=== PATIENT | female | born 1945 | race Caucasian/White ===

== ENCOUNTER 2016-11-10 08:35 | Emergency (ER) | payer MEDICARE, BC ==
[2016-11-10 08:50] VITALS: BP 152/72
--- NOTE | 2016-11-10 12:21 | UC ---
Eldon Rivero Salem, scribed for Eliezer Farmer MD on 11/10/16 at 1009 . Throat Pain/Nasal Atilio HPI - HPI Summary HPI Summary: Patient is a 71 y/o F who presents to the ED with a sore throat for the past week. She reports a cough that is worse at night and intermittently productive for clear or yellow sputum. She denies pressure in ears, face, or sinuses. She also denies SOB, fever, or chills, but reports general myalgia. Pt does not take blood thinners. She states that her has not been feeling well either and that he recently started taking a Z-pack. Patients medication reviewed this visit. - History of Current Complaint Chief Complaint: UCGeneralIllness Stated Complaint: HEAD COLD COMPLAINT Time Seen by Provider: 11/10/16 09:57 Hx Obtained From: Patient Onset/Duration: Gradual Onset, Lasting Days, Still Present Severity: Moderate Cough: Sputum Appears - Clear and yellow. Associated Signs & Symptoms: Positive: Negative - Allergies/Home Medications Allergies/Adverse Reactions: Allergies Allergy/AdvReac Type Severity Reaction Status Date / Time No Known Allergies Allergy Verified 11/10/16 08:50 Home Medications: Home Medications Levothyroxine TAB* [Synthroid 25 MCG TAB*] 50 mcg PO DAILY 11/10/16 [History Confirmed 11/10/16] PMH/Surg Hx/FS Hx/Imm Hx Previously Healthy: Yes - Surgical History Surgical History: Yes Surgery Procedure, Year, and Place: HYSTERECTOMY. tonsillectomy - Family History Known Family History: Positive: Hypertension, Diabetes - Social History Alcohol Use: Rare Substance Use Type: None Smoking Status (MU): Never Smoked Tobacco Have You Smoked in the Last Year: No Review of Systems Constitutional: Negative ENT: Sore Throat, Other - No pressure in ears, face, or sinuses. Respiratory: Cough, Other - No SOB. Musculoskeletal: Other: - General myalgia. All Other Systems Reviewed And Are Negative: Yes Physical Exam Triage Information Reviewed: Yes Vital Signs: Initial Vital Signs Temp 97.6 F 11/10/16 08:46 Pulse 60 11/10/16 08:46 Resp 16 11/10/16 08:46 BP 152/72 11/10/16 08:46 Pulse Ox 99 11/10/16 08:46 Vital Signs Reviewed: Yes - Additional Comments The patient is well-nourished in no acute distress and in no acute pain. The skin is warm and dry and skin color reflects adequate perfusion. HEENT: The head is normocephalic and atraumatic. The pupils are equal and reactive. The conjunctivae are clear and without drainage. Nares are patent and without drainage. Mouth reveals moist mucous membranes. The throat: erythema, but no exudate. Uvula swollen. The external ears are intact. The ear canals are patent and without drainage. The tympanic membranes are intact. No effusion in right or left TM. No sinus tenderness to percussion. Neck is supple with full range of motion and non-tender. Respiratory: Chest is non-tender. Lungs are clear to auscultation and breath sounds are symmetrical and equal. Cardiovascular: Heart is regular rate and rhythm. There is no murmur or rub auscultated. There is no peripheral edema and pulses are symmetrical and equal. Abdomen: The abdomen is soft and non-tender. Musculoskeletal: There is no back pain noted. Extremities are non-tender with full range of motion. There is good capillary refill. There is no peripheral edema or calf tenderness elicited. Neurological: Patient is alert and oriented to person, place and time. The patient has symmetrical motor strength in all four extremities. Psychiatric: The patient has an appropriate affect and does not exhibit any anxiety or depression. Throat Pain/Nasal Course/Dx - Course Course Of Treatment: 71 y/o F presents with a sore throat for the past week. She reports general myalgia and a cough that is intermittently productive for clear or yellow sputum. She denies pressure in ears, face, or sinuses, SOB, fever, or chills. Pt will be DC with Robitussin and Augmentin, instruction, and follow up with PCP. - Differential Dx/Diagnosis Provider Diagnoses: Sinusitis. Bronchitis Discharge - Discharge Plan Condition: Stable Disposition: HOME Prescriptions: Amoxicillin/Clavulanate TAB* [Augmentin TAB 875*] 875 mg PO BID #20 tab guaiFENesin/CODIEN 100MG-10MG* [Robitussin AC 100Mg-10Mg*] 5 ml PO Q4H PRN #120 udc MDD 30 ml PRN Reason: cough Patient Education Materials: Sinusitis (ED), Acute Bronchitis (ED) Referrals: Rupert Hernandez MD [Primary Care Provider] - Additional Instructions: Please follow up with your primary care provider. The documentation as recorded by the Eldon mitchell Salem accurately reflects the service I personally performed and the decisions made by me, Eliezer Farmer MD.
== END 2016-11-10 10:24 | disposition home or self-care (01) ==
LOC: UCEAST 08:35
DX: J32.9 Chronic sinusitis, unspecified (principal); J40 Bronchitis, not specified as acute or chronic
CPT/HCPCS: 99212; G0463

== ENCOUNTER 2018-08-26 14:19 | Emergency (ER) | payer MEDICARE, BC ==
[2018-08-26] MEDS ORDERED: Acetaminophen TAB* 325 MG PO ONE (19:27)
--- NOTE | 2018-08-26 19:29 | ED ---
Lower Extremity - HPI Summary HPI Summary: Pt is a 73 y/o F presenting to the ED with a chief complaint of left calf pain onset yesterday morning. She says it felt like a large cramp and the pain has not gone away, and is worsened upon walking. She also had a biopsy of her skin done on the left calf done on 08/15/18. Per triage note, she denies chest pain, sob, and fever. She has a hx of HTN and is not on any anticoagulants. - History of Current Complaint Chief Complaint: EDExtremityLower Stated Complaint: I HAVE PAIN IN LEFT CALF PER PT Time Seen by Provider: 08/26/18 19:18 Hx Obtained From: Patient Mechanism Of Injury: Unknown Onset of Pain: Immediate, Days Onset/Duration: Days Severity Initially: Severe Severity Currently: Moderate Pain Intensity: 8 Pain Scale Used: 0-10 Numeric Timing: Constant, Lasting Days Location: Is Discrete @ - L calf Character Of Pain: Aching Associated Signs And Symptoms: Negative: Fever Aggravating Factor(s): Ambulation Alleviating Factor(s): Elevation Able to Bear Weight: Yes - Allergies/Home Medications Allergies/Adverse Reactions: Allergies Allergy/AdvReac Type Severity Reaction Status Date / Time No Known Allergies Allergy Verified 11/10/16 08:50 PMH/Surg Hx/FS Hx/Imm Hx Previously Healthy: Yes Endocrine/Hematology History: Reports: Hx Thyroid Disease - hypo Denies: Hx Diabetes Cardiovascular History: Reports: Hx Hypertension Respiratory History: Denies: Hx Asthma, Hx Chronic Obstructive Pulmonary Disease (COPD) GI History: Denies: Hx Ulcer Musculoskeletal History: Reports: Other Musculoskeletal History - torn gastrocnemius - Cancer History Hx Chemotherapy: No Hx Radiation Therapy: No - Surgical History Surgery Procedure, Year, and Place: HYSTERECTOMY. tonsillectomy Infectious Disease History: No Infectious Disease History: Denies: Hx Human Immunodeficiency Virus (HIV), History Other Infectious Disease, Traveled Outside the [place] in Last 30 Days - Family History Known Family History: Positive: Hypertension, Diabetes Family History: NON CONTRIBUTORY - Social History Alcohol Use: Rare Hx Substance Use: No Substance Use Type: Reports: None Hx Tobacco Use: No Smoking Status (MU): Never Smoked Tobacco Have You Smoked in the Last Year: No Review of Systems Negative: Fever Negative: Chest Pain Negative: Shortness Of Breath Positive: Myalgia All Other Systems Reviewed And Are Negative: Yes Physical Exam - Summary Physical Exam Summary: VITAL SIGNS: Reviewed. GENERAL: Patient is a well-developed and nourished female who is lying comfortable in the stretcher. Patient is not in any acute respiratory distress. HEAD AND FACE: No signs of trauma. No ecchymosis, hematomas or skull depressions. No sinus tenderness. EYES: PERRLA, EOMI x 2, No injected conjunctiva, no nystagmus. EARS: Hearing grossly intact. Ear canals and tympanic membranes are within normal limits. MOUTH: Oropharynx within normal limits. NECK: Supple, trachea is midline, no adenopathy, no JVD, no carotid bruit, no c- spine tenderness, neck with full ROM. CHEST: Symmetric, no tenderness at palpation LUNGS: Clear to auscultation bilaterally. No wheezing or crackles. CVS: Regular rate and rhythm, S1 and S2 present, no murmurs or gallops appreciated. ABDOMEN: Soft, non-tender. No signs of distention. No rebound no guarding, and no masses palpated. Bowel sounds are normal. EXTREMITIES: FROM in all major joints, no cyanosis or clubbing. Trace non- pitting edema of the LLE, no tenderness, warmth, or any inflammatory signs. NEURO: Alert and oriented x 3. No acute neurological deficits. Speech is normal and follows commands. SKIN: Dry and warm Triage Information Reviewed: Yes Vital Signs On Initial Exam: Initial Vitals Temp Pulse Resp BP Pulse Ox 96.8 F 71 14 189/69 95 08/26/18 14:22 08/26/18 14:22 08/26/18 14:22 08/26/18 14:22 08/26/18 14:22 Vital Signs Reviewed: Yes Diagnostics - Vital Signs Vital Signs Temp Pulse Resp BP Pulse Ox 08/26/18 18:32 97 F 63 16 185/67 98 08/26/18 14:22 96.8 F 71 14 189/69 95 - Laboratory Result Diagrams: 08/26/18 20:03 08/26/18 20:03 Lab Statement: Any lab studies that have been ordered have been reviewed, and results considered in the medical decision making process. - Ultrasound No standard instances Ultrasound Interpretation Completed By: Radiologist Summary of Ultrasound Findings: No acute findings. No evidence of deep vein thrombosis. ED physician has reviewed this report. Lower Extremity Course/Dx - Course Course Of Treatment: Pt is a 73 y/o F presenting to the ED with a chief complaint of constant left calf pain onset yesterday morning described as cramping. She notes a biopsy of her L calf skin was done on 08/15/18 and was normal. She denies chest pain, sob, fever, and is not on any anticoagulants. Trace nonpitting edema without inflammatory signs noted upon physical exam. An ultrasound shows no acute findings. No evidence of deep vein thrombosis. The pt will be sent home with a dx of leg pain and instructions to follow up with her primary care provider. She is agreeable with this plan. - Diagnoses Provider Diagnoses: Leg pain Discharge - Sign-Out/Discharge Documenting (check all that apply): Patient Departure Patient Received Moderate/Deep Sedation with Procedure: No - Discharge Plan Condition: Stable Disposition: HOME Referrals: Rupert Hernandez MD [Primary Care Provider] - Additional Instructions: Please follow up with your primary care physician within the next 2-3 days. Return to the emergency department with any new or worsening symptoms. - Attestation Statements Document Initiated by Sylvie: Yes Documenting Scribe: Angeles Oviedo Provider For Whom Sylvie is Documenting (Include Credential): Yony Plummer MD. Scribe Attestation: Angeles Rivero scribed for Yony Plummer MD. on 08/26/18 at 2053. Status of Scribe Document: Ready
[2018-08-26 20:13] LABS: ABS Basophils 0 10^3/ul (0-0.2); ABS Eosinophils 0.1 10^3/ul (0-0.6); ABS Lymphocytes 1.5 10^3/ul (1.0-4.8); ABS Monocytes 0.9 10^3/ul (0-0.8); ABS Neutrophils 4.5 10^3/ul (1.5-7.7); ABS Nucleated RBC 0 10^3/ul; Eosinophil % 1.8 %; Hematocrit 38 % (33-41); Hemoglobin 13.3 g/dL (12.0-16.0); Lymphocyte % 20.8 %; Mean Corpuscular HGB Conc 35 g/dL (31-36); Mean Corpuscular Hemoglobin 32 pg (27-31); Mean Corpuscular Volume 91 fL (80-97); Mean Platelet Volume 8.2 fL (7.4-10.4); Nucleated Red Blood Cells % 0; Platelet Count 193 10^3/uL (150-450); Red Blood Count 4.21 10^6 /uL (3.70-4.87); Red Cell Distribution Width 13 % (10.5-15); White Blood Count 7.1 10^3/uL (3.5-10.8)
[2018-08-26 20:22] LABS: Activated Partial Thrombo Time 27.9 seconds (26.0-36.3); INR 0.86 (0.77-1.02)
[2018-08-26 20:31] LABS: Albumin 4.1 g/dL (3.2-5.2); Albumin/Globulin Ratio 1.7 (1-3); BUN/Creatinine Ratio 26.9 (8-20); C Reactive Protein 2.11 mg/L (<8.01); Calcium 9.7 mg/dL (8.6-10.3); EGFR African American 60.3 (>60); EGFR Non-African American 49.9 (>60); Globulin 2.4 g/dL (2-4); Magnesium 2.1 mg/dL (1.9-2.7); Total Bilirubin 0.4 mg/dL (0.2-1.0); Total Protein 6.5 g/dL (6.4-8.9)
[2018-08-26 21:33] VITALS: BP 145/84
== END 2018-08-26 21:32 | disposition home or self-care (01) ==
LOC: ED 14:19
DX: M79.605 Pain in left leg (principal); I10 Essential (primary) hypertension; E03.9 Hypothyroidism, unspecified
CPT/HCPCS: 36415; 80053; 83735; 85025; 85610; 85730; 86140; 99283; A9270-GY

== ENCOUNTER 2019-03-14 09:14 | Day surgery (SDC) | payer MEDICARE, BC ==
[~2019-03-14 09:14] MED LIST: Buffered Lidocaine 1% SYRIN* 1 ML/SYRINGE INTRADERM ONE; Famotidine IV* 10 MG/ML 2 ML (20 mg) IV ONE; Famotidine IV* 10 MG/ML 2 ML (20 mg) ONE; Lactated Ringers 1000 ML Bag* 1,000 ML IV SCH
[2019-03-14] MEDS ORDERED: ceFAZolin 2 GM PREMIX in ORs 2 GM/50 ML BAG ONE (09:24)
[2019-03-14] MEDS ORDERED: fentaNYL* 50 MCG/ML 2 ML VIAL (100 MCG VIAL) ONE (09:48)
[2019-03-14] MEDS ORDERED: Midazolam* 1 MG/ML 2 ML VIAL (2 MG) ONE (09:48)
[2019-03-14] MEDS ORDERED: Propofol* 10 MG/ML 20 ML BTL ONE (09:50)
[2019-03-14] MEDS ORDERED: Lidocaine 2% PF * 5 ML VIAL ONE (09:50)
[2019-03-14] MEDS ORDERED: Bupivacaine 0.25% SDV* 30 ML ONE (11:02)
[2019-03-14] MEDS ORDERED: EPHEDrine (Pressors)* 50 MG/ML VIAL ONE (11:59)
[2019-03-14] MEDS ORDERED: fentaNYL* 50 MCG/ML 2 ML VIAL (100 MCG VIAL) IV PRN (12:35)
[2019-03-14] MEDS ORDERED: Acetaminophen TAB* 325 MG PO PRN (12:35)
[2019-03-14] MEDS ORDERED: Naloxone* 0.4 MG/ML 1 ML VIAL IV PRN (12:35)
[2019-03-14] MEDS ORDERED: oxyCODONE TAB* 5 MG TAB PO PRN (12:35)
[2019-03-14] MEDS ORDERED: diPHENhydraMINE IV* 50 MG/ML 1 ml VIAL (BENADRYL) IV PRN (12:35)
[2019-03-14] MEDS ORDERED: PROCHLORPERAZINE INJ 5 MG/ML 2 ML VIAL IV PRN (12:35)
[2019-03-14] MEDS ORDERED: Ketorolac INJ* 30 MG/ML 1 ML VIAL ONE (12:45)
[2019-03-14] MEDS ORDERED: Ondansetron INJ* 2 MG/ML VIAL ONE (12:45)
[2019-03-14] MEDS ORDERED: Dexamethasone IV* 4 MG/ML 1 ML (4 MG) ONE (12:45)
[2019-03-14] MEDS ORDERED: Acetaminophen TAB* 325 MG ONE (14:38)
[2019-03-14 15:33] VITALS: BP 127/56
--- NOTE | 2019-03-14 21:49 | OP ---
DATE OF OPERATION: 03/14/19 [facility] DATE OF : 47 SURGEON: Jose Luis Saini MD. J2EE APPLICATION DEVELOPER: NADIR Watson. An store assistant was needed for the entirety of the procedure to aid in positioning of the arm and retraction. ANESTHESIOLOGIST: Dr. Moss. ANESTHESIA: General. PRE-OP DIAGNOSES: 1. 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 2. Hyperextension, laxity, and volar plate attenuation of the left thumb metacarpophalangeal joint. 3. Left thumb ulnar collateral ligament attenuation and degeneration. POST-OP DIAGNOSES: 1. 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 2. Hyperextension, laxity, and volar plate attenuation of the left thumb metacarpophalangeal joint. 3. Left thumb ulnar collateral ligament attenuation and degeneration. OPERATIVE PROCEDURE: 1. Left thumb carpometacarpal arthroplasty. 2. Left distally based split flexor carpi radialis tendon transfer for thumb suspension and tendon interposition. 3. Left thumb metacarpophalangeal joint volar capsulodesis. 4. Left thumb metacarpophalangeal joint ulnar collateral ligament repair. INDICATIONS: Jacklyn is 73 years old. She has the aforementioned thumb condition. We talked about her treatment options. We talked about doing a fusion of the MP joint versus tightening up the ligaments. She understood and wanted to proceed. ESTIMATED BLOOD LOSS: 2 mL. COMPLICATIONS: None. FINDINGS: See above and below. DESCRIPTION OF PROCEDURE: Ms. Fitzpatrick was seen in the preoperative holding area. The correct site, side, and procedures were identified. We came back to the operating room. The arm was prepped and draped in the usual fashion and a time-out was performed. The arm was exsanguinated with the Esmarch and the tourniquet was inflated to 225 mmHg. I first made a 2-cm incision over the dorsal radial thumb metacarpal base. Dissection was carried down. The radial artery was mobilized and retracted out of the way. I made a longitudinal split and raised subperiosteal flaps off of the trapezium. The scapho-trapezial and the CMC and the trapeziotrapezoid joints were all visualized and released. The trapezium was then excised in piecemeal fashion with a rongeur. It mostly came out in 1 large piece. The FCR tendon was preserved in the base of the wound. I then used sequentially larger drill bits to make a bone tunnel from the dorsoradial thumb metacarpal base exiting out the volar ulnar articular surface near the insertion of the FCR tendon. I did go ahead and inspect the scaphotrapezoid joint. The articular cartilage there looked good. I then made a 1-cm incision over the distal FCR tendon proximal to the wrist flexion crease. The sheath was released. The tendon was brought up and delivered out of the wound. It was split longitudinally with a 15-blade and then a 26-gauge wire was passed into the split. I then made two 1-cm incisions proximal to that. The entirety of the FCR tendon sheath was released. A Tess clamp was used to pull the wire up into the most proximal wound releasing half the tendon in the musculotendinous junction. Two 26-gauge wires were used to suture shuttle the FCR tendon down into the thumb base wound. The tendon split was taken all the way down to the base of the second metacarpal. The free end of the tendon was taken through the bone tunnel and moved back around the intact limb and then maximum tension was set as the tendon transfer was secured with 3 [id number] 3-0 Ethibond sutures, the first sewing all 3 limbs of the tendon transfer together, the second sewing intact limb to intact limb. This suspended the thumb very nicely. It was seen in a very nice position. The wound was irrigated out. The capsule was closed with 4-0 Vicryl suture. The skin of all the incisions were closed with 4-0 nylon suture. I then made a V-shaped incision and raised an ulnarly based flap off the volar aspect of the thumb MP joint. Dissection was carried down. Full-thickness flaps were raised off the tendon sheath. The A1 kyung was incised. The tendon was retracted out of the way. I raised a distally based volar plate U flap. There was a lot of arthritis under the radial sesamoid and that was excised. I then placed 2 DePuy mini Mitek suture anchors in the metacarpal neck. I performed a whipstitch up into the volar plate and then tied this off setting the MP joint flexion at 30 degrees. There was a nice strong end point there. Lastly, there was just too much attenuation of the ulnar collateral ligament. 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 I went ahead and made a longitudinal incision over the ulnar aspect of the MP joint. Dissection was carried down. Full-thickness flaps were raised off the adductor aponeurosis, this was split and retracted palmarly and dorsally. The ulnar collateral ligament was visualized very vertical, seen in a very vertical orientation. It was released, preserved venous origin on the metacarpal head. It was then rotated into a more natural position. Two DePuy mini Mitek suture anchors were placed after the bone had been prepared. The 3- 0 Ethibond sutures off those were used to whipstitch up into the ulnar collateral ligament and these were tied off. This provided an excellent repair and we completely restored the stability of the ulnar collateral ligament. A little bit of 3-0 Ethibond suture was used to sew the inferior portion of the ligament to the volar plate. The adductor aponeurosis was closed with some 4-0 Vicryl suture. The wound was irrigated out. Skin was closed with 4-0 nylon suture. 0.25% plain Marcaine was infiltrated about all of the wounds. Wounds were dressed with Xeroform, 4x4s, sterile Webril, and then a thumb spica splint to the level just past the IP joint was applied to allow for a little bit of IP joint motion but protecting the MP joint. Tourniquet was deflated, and she was taken to the recovery room in stable condition. [id number]/CPS #: [id number] EMILIANO
== END 2019-03-14 15:40 | disposition home or self-care (01) ==
LOC: OREAST 09:14
PROVIDERS: ATTEND Orthopaedic Surgery Hand Surgery
DX: M18.12 Unilateral primary osteoarthritis of first carpometacarpal joint, left hand (principal); M24.242 Disorder of ligament, left hand; I10 Essential (primary) hypertension; K21.9 Gastro-esophageal reflux disease without esophagitis; E03.9 Hypothyroidism, unspecified; E83.119 Hemochromatosis, unspecified; E78.00 Pure hypercholesterolemia, unspecified; M19.90 Unspecified osteoarthritis, unspecified site
CPT/HCPCS: 88304; 88311; A9270-GY; C1713; J0690; J1100; J1885; J2250; J2405; J2704; J3010; J3490